=== PATIENT | female | born 1960 | race Caucasian/White ===

== ENCOUNTER → 2017-02-08 | Outpatient (CLI) | payer OTHER | LOC: FIMAGING 09:20 | PROVIDERS: ATTEND Family Medicine | DX: Z12.31 Encounter for screening mammogram for malignant neoplasm of breast (principal); Z80.3 Family history of malignant neoplasm of breast | CPT/HCPCS: G0202 ==

== ENCOUNTER → 2018-04-15 | Outpatient (CLI) | payer OTHER | LOC: BMCIMAGING 07:36 | PROVIDERS: ATTEND Family Medicine | DX: Z12.31 Encounter for screening mammogram for malignant neoplasm of breast (principal); Z80.3 Family history of malignant neoplasm of breast ==

== ENCOUNTER 2018-07-10 13:17 | Emergency (ER) | payer OTHER ==
[2018-07-10 13:22] VITALS: BP 138/83
--- NOTE | 2018-07-10 13:39 | EDPHY ---
General Time Seen by Provider: 07/10/18 13:24 Narrative: CHIEF COMPLAINT: Fall, wrist fracture HISTORY OF PRESENT ILLNESS: Patient presents from urgent care with reports of fall and left wrist fracture. She states that she was shoveling snow this morning around 9:00 a.m. When she slipped and fell on outstretched left hand. She reports sudden onset is severe pain left wrist. She denies any head strike or loss of consciousness or any pain anywhere else on her person. Pain worse palpation movement. She reports some decreased cold sensation left thumb and index finger. No numbness, tingling or weakness. She was seen at an urgent care where she was diagnosed with a wrist fracture, placed in a splint and sent to our facility "for you to set it." No radiating pain. No pain left elbow or shoulder. No other associated complaints or modifying factors. DOMINANT EXTREMITY: Right-hand dominant ESTABLISHED ORTHOPEDIST: Dr. Stephani De La Vega REVIEW OF SYSTEMS: Ten systems reviewed and are negative unless otherwise noted in the HPI PAST MEDICAL HISTORY: denies PAST SURGICAL HISTORY: Denies SOCIAL HISTORY: Nonsmoker. Lives independently. FAMILY HISTORY: Noncontributory EXAMINATION: General Appearance: Alert, no distress Cardiovascular: Good signs of perfusion to the left fingers with brisk cap refill. Neurological: A&O, light sensory symmetric. Strength not tested in her splint. Reports decreased cold sensation to the left thumb and index finger. Skin: Warm and dry, no rash. No cyanosis or pallor of the fingers left hand. Extremities: Left upper extremity in a sugar-tong splint. I did not remove this. There is no tenderness in the exposed fingers. DIFFERENTIAL DIAGNOSES: Including but not limited to wrist fracture, wrist sprain, acute carpal tunnel, radial nerve injury MDM: 1:35 p.m. Mechanical fall with left wrist sprain and closed left distal radius fracture. This is intra-articular with compaction and minimal dorsal angulation. I reviewed the x-ray. I have discussed with the patient the risks, benefits and alternatives of close reduction versus remaining her splint for outpatient open reduction internal fixation. Given her x-ray appearance and her minimal pain at rest, I do not feel that the risks of sedation and closed reduction outweigh the benefit of doing so. Furthermore, conversation was had between Dr. Garsia and urgent care provider. He informed the urgent care provider that we would be happy to evaluate the patient, but that he felt that closed reduction is unlikely to benefit the patient unless she is in intractable pain or has evidence of nerve entrapment. Patient has no evidence of nerve entrapment and her pain is minimal. I did offer the reduction she has declined. I do feel it is reasonable at this time to keep her in her splint for outpatient definitive open reduction internal fixation. We discussed ED precautions. We discussed ice and elevation. We discussed Tylenol but avoidance of ibuprofen or Aleve until seen by orthopedist. She is comfortable this plan and discharged home stable condition. SUPERVISION: Patient was independently examined, but I discussed the case with my secondary supervising physician Dr. Garsia - History Smoking Status: Never smoked - Objective Vital Signs: Initial Vital Signs Temperature (C) 98.8 F 07/10/18 13:20 Heart Rate 88 07/10/18 13:20 Respiratory Rate 18 07/10/18 13:20 Blood Pressure 138/83 H 07/10/18 13:20 O2 Sat (%) 93 07/10/18 13:20 O2 Delivery Mode Room Air Allergies/Adverse Reactions: eye dialtor drops Allergy (Uncoded 07/10/18 13:20) Home Medications: Medication Instructions Recorded oxyCODONE IR [Oxycodone Ir (*)] 5 - 10 mg PO Q4-6PRN PRN #12 tab 07/10/18 Departure - Departure Disposition: Home, Routine, Self-Care Clinical Impression: Distal radius fracture, left Qualifiers: Encounter type: initial encounter Fracture type: closed Fracture morphology: other intra-articular Qualified Code(s): S52.572A - Other intraarticular fracture of lower end of left radius, initial encounter for closed fracture Left wrist sprain Qualifiers: Encounter type: initial encounter Qualified Code(s): S63.502A - Unspecified sprain of left wrist, initial encounter Condition: Good Instructions: Wrist Fracture in Adults (ED) Additional Instructions: 1. Contact orthopedist for outpatient definitive care. This is a surgical fracture 2. Ice, elevation often 3. Tylenol 650 mg every 6 hr as needed for pain. Do not take any anti- inflammatories until seen by orthopedist 4. Pain medication as prescribed as needed 5. ED precautions for numbness, weakness, intractable pain Referrals: Rhiannon aRmirez MD [Primary Care Provider] - As per Instructions Rocky Phipps MD [Medical Doctor] - As per Instructions Prescriptions: oxyCODONE IR [Oxycodone Ir (*)] 5 - 10 mg PO Q4-6PRN PRN #12 tab PRN Reason: Pain, Moderate
== END 2018-07-10 13:57 | disposition home or self-care (01) ==
DX: S52.572A Other intraarticular fracture of lower end of left radius, initial encounter for closed fracture (principal); W01.0XXA Fall on same level from slipping, tripping and stumbling without subsequent striking against object, initial encounter; Y92.9 Unspecified place or not applicable; Y93.9 Activity, unspecified

== ENCOUNTER → 2018-08-18 | Outpatient (CLI) | payer OTHER | LOC: FIMAGING 13:37 | PROVIDERS: ATTEND Family Medicine | DX: Z13.820 Encounter for screening for osteoporosis (principal); M81.0 Age-related osteoporosis without current pathological fracture; Z78.0 Asymptomatic menopausal state ==